=== PATIENT | female | born 1970 | race Caucasian/White ===

== ENCOUNTER 2018-05-06 17:57 | Inpatient (IN) | payer BC ==
[~2018-05-06] VITALS: Ht 167.6 cm; Wt 67.8 kg
[2018-05-06 18:03] VITALS: Ht 167.6 cm; Wt 67.8 kg
[2018-05-06 19:04] LABS: BASOPHIL % 0.6 % (0-2); PLATELET COUNT 158 x10^3mcL (130-400); RED CELL DISTRIBUTION WIDTH 12.6 % (11.5-14.5)
[2018-05-06 19:20] LABS: CARBON DIOXIDE 21.4 mmol/L (21-32); CREATININE SERUM 1.1 mg/dL (0.6-1.0); POTASSIUM SERUM 3.2 mmol/L (3.5-5.1)
[2018-05-06 19:25] LABS: ALBUMIN 2.9 g/dL (3.4-5.0); BILIRUBIN TOTAL 0.22 mg/dL (0.20-1.00); TOTAL PROTEIN, SERUM 7.2 g/dL (6.4-8.2)
[2018-05-06 19:50] LABS: T3 TOTAL 0.85 ng/mL
[2018-05-06 20:33] LABS: CHOLESTEROL/HDL RATIO 2.7; MAGNESIUM 1.7 mg/dL (1.8-2.4); PHOSPHOROUS 2.6 mg/dL (2.5-4.9)
[2018-05-06 20:40] VITALS: BP 108/67
[2018-05-06 20:43] LABS: FREE T4 0.96 ng/dL (0.76-1.46); FREE THYROXINE INDEX 2.6 ug/dL (1.4-4.5); T4(THYROXINE) 7.4 ug/dL (4.7-13.3)
[2018-05-06 23:20] VITALS: BP 129/48
[2018-05-06 23:46] LABS: BASOPHIL % 0.2 % (0-2); PLATELET COUNT 135 x10^3mcL (130-400)
[2018-05-07 00:08] LABS: BILIRUBIN DIRECT 0.18 mg/dL (0.0-0.2); BILIRUBIN TOTAL 0.4 mg/dL (0.20-1.00); TOTAL PROTEIN, SERUM 6.4 g/dL (6.4-8.2)
[2018-05-07 00:10] LABS: ALBUMIN 2.7 g/dL (3.4-5.0)
[2018-05-07 00:48] LABS: microscopic required? NO
[2018-05-07 01:03] LABS: UA SPECIFIC GRAVITY <=1.005 (1.005-1.035); urine erythrocyte NEGATIVE (NEGATIVE)
[2018-05-07 01:21] LABS: AMPHETAMINE QUAL UR NONE DETECTED (See below)
[2018-05-07 03:19] VITALS: BP 98/55
[2018-05-07 05:05] LABS: BASOPHIL % 0.4 % (0-2); PLATELET COUNT 144 x10^3mcL (130-400); RED CELL DISTRIBUTION WIDTH 13.2 % (11.5-14.5)
[2018-05-07 05:15] LABS: CALCIUM 8.2 mg/dL (8.5-10.1); CARBON DIOXIDE 23.2 mmol/L (21-32); CHLORIDE SERUM 111 mmol/L (98-107); CREATININE SERUM 0.9 mg/dL (0.6-1.0); GFR1 > 60 mL/min; GLUCOSE SERUM 116 mg/dL (74-106); MAGNESIUM 1.8 mg/dL (1.8-2.4); PHOSPHOROUS 4.1 mg/dL (2.5-4.9); POTASSIUM SERUM 4.2 mmol/L (3.5-5.1); SODIUM SERUM 143 mmol/L (136-145)
[2018-05-07 05:16] LABS: ALBUMIN 2.5 g/dL (3.4-5.0); BILIRUBIN DIRECT 0.09 mg/dL (0.0-0.2); BILIRUBIN TOTAL 0.31 mg/dL (0.20-1.00); TOTAL PROTEIN, SERUM 6.2 g/dL (6.4-8.2)
[2018-05-07 07:40] VITALS: BP 91/57
[2018-05-07] MEDS ORDERED: ZOF4 PO (11:40)
[2018-05-07 12:33] VITALS: BP 93/63
== END 2018-05-07 13:24 | disposition home or self-care (01) | DRG 918 ==
LOC: ED 17:57 → IC 19:14
PROVIDERS: Emergency Medicine; Internal Medicine
DX: T63.011A Toxic effect of rattlesnake venom, accidental (unintentional), initial encounter (principal); E44.0 Moderate protein-calorie malnutrition; R74.0 Nonspecific elevation of levels of transaminase and lactic acid dehydrogenase [LDH]; E78.5 Hyperlipidemia, unspecified; Y92.89 Other specified places as the place of occurrence of the external cause; Z68.26 Body mass index [BMI] 26.0-26.9, adult
CPT/HCPCS: 83880; 84439; 85378; J2060; J2270; J2405; J7030; J7050; Q0092

== ENCOUNTER 2020-05-27 08:40 | Inpatient (IN) | payer BC ==
[~2020-05-27] VITALS: Ht 154.9 cm; Wt 71.0 kg
[~2020-05-27 08:40] MED LIST: ZOF4 PO
[2020-05-27 08:41] VITALS: Ht 154.9 cm; Wt 71.0 kg
[2020-05-27 09:18] LABS: BASOPHIL % 0.4 % (0-2); PLATELET COUNT 150 x10^3mcL (130-400); RED CELL DISTRIBUTION WIDTH 12.9 % (11.5-14.5)
[2020-05-27 09:25] LABS: CALCIUM 8.7 mg/dL (8.5-10.1); CARBON DIOXIDE 18.3 mmol/L (21-32); CHLORIDE SERUM 109 mmol/L (98-107); CREATININE SERUM 0.9 mg/dL (0.6-1.0); GFR1 > 60 mL/min; GLUCOSE SERUM 150 mg/dL (74-106); POTASSIUM SERUM 3.7 mmol/L (3.5-5.1); SODIUM SERUM 142 mmol/L (136-145)
[2020-05-27 09:29] LABS: ALKALINE PHOSPHATASE 87 U/L (46-116); ALT/SGPT 29 U/L (14-59); AST/SGOT 26 U/L (15-37); BILIRUBIN TOTAL 0.3 mg/dL (0.20-1.00); TOTAL PROTEIN, SERUM 6.9 g/dL (6.4-8.2)
[2020-05-27 15:29] VITALS: BP 129/77
[2020-05-27 16:53] LABS: MAGNESIUM 1.9 mg/dL (1.8-2.4)
[2020-05-27 17:04] LABS: PHOSPHOROUS 0.7 mg/dL (2.5-4.9)
[2020-05-27 19:59] VITALS: BP 100/63
[2020-05-28 05:26] VITALS: BP 98/57
[2020-05-28 06:20] LABS: BASOPHIL % 0.3 % (0-2); PLATELET COUNT 143 x10^3mcL (130-400); RED CELL DISTRIBUTION WIDTH 12.9 % (11.5-14.5)
[2020-05-28 06:25] LABS: microscopic required? NO
[2020-05-28 06:47] LABS: CALCIUM 8.6 mg/dL (8.5-10.1); CARBON DIOXIDE 25.1 mmol/L (21-32); CHLORIDE SERUM 111 mmol/L (98-107); GFR1 > 60 mL/min; GLUCOSE SERUM 127 mg/dL (74-106); POTASSIUM SERUM 3.6 mmol/L (3.5-5.1); SODIUM SERUM 140 mmol/L (136-145)
[2020-05-28 07:43] LABS: UA SPECIFIC GRAVITY 1.025 (1.005-1.035); urine erythrocyte NEGATIVE (NEGATIVE)
[2020-05-28 08:00] LABS: AMPHETAMINE QUAL UR NONE DETECTED (See below)
[2020-05-28 08:16] VITALS: BP 106/65
[2020-05-28 12:49] VITALS: BP 110/68
[2020-05-28 16:39] VITALS: BP 102/62
[2020-05-28 21:43] VITALS: BP 101/63
[2020-05-29 05:41] VITALS: BP 103/67
[2020-05-29 06:49] LABS: BASOPHIL % 0.5 % (0-2); RED CELL DISTRIBUTION WIDTH 12.9 % (11.5-14.5)
[2020-05-29 06:59] LABS: PLATELET COUNT 122 x10^3mcL (130-400)
[2020-05-29 07:04] LABS: CALCIUM 8.5 mg/dL (8.5-10.1); CHLORIDE SERUM 112 mmol/L (98-107); CREATININE SERUM 0.8 mg/dL (0.6-1.0); GFR1 > 60 mL/min; GLUCOSE SERUM 85 mg/dL (74-106); MAGNESIUM 1.9 mg/dL (1.8-2.4); PHOSPHOROUS 3.5 mg/dL (2.5-4.9); POTASSIUM SERUM 3.4 mmol/L (3.5-5.1); SODIUM SERUM 142 mmol/L (136-145)
[2020-05-29 09:26] VITALS: BP 109/73
[2020-05-29 13:11] VITALS: BP 115/81
[2020-05-29 16:59] VITALS: BP 96/60
[2020-05-29 21:22] VITALS: BP 95/60
[2020-05-30 05:18] VITALS: BP 97/55
[2020-05-30 06:30] LABS: BASOPHIL % 0.3 % (0-2); PLATELET COUNT 141 x10^3mcL (130-400); RED CELL DISTRIBUTION WIDTH 12.6 % (11.5-14.5)
[2020-05-30 07:03] LABS: CALCIUM 8.8 mg/dL (8.5-10.1); CARBON DIOXIDE 27.5 mmol/L (21-32); CHLORIDE SERUM 105 mmol/L (98-107); CREATININE SERUM 0.8 mg/dL (0.6-1.0); GFR1 > 60 mL/min; GLUCOSE SERUM 94 mg/dL (74-106); MAGNESIUM 1.9 mg/dL (1.8-2.4); PHOSPHOROUS 4.1 mg/dL (2.5-4.9); POTASSIUM SERUM 3.3 mmol/L (3.5-5.1); SODIUM SERUM 142 mmol/L (136-145)
[2020-05-30 08:33] VITALS: BP 108/76
[2020-05-30 12:00] VITALS: BP 116/76
[2020-05-30 16:30] VITALS: BP 110/72
[2020-05-30 19:51] VITALS: BP 114/67
[2020-05-30 21:30] VITALS: BP 105/70
[2020-05-31 05:19] VITALS: BP 98/63
[2020-05-31] MEDS ORDERED: MECLIZINE HYDRO25 M1 PO (05:50)
[2020-05-31 07:18] LABS: BASOPHIL % 0.4 % (0-2); PLATELET COUNT 141 x10^3mcL (130-400); RED CELL DISTRIBUTION WIDTH 12.3 % (11.5-14.5)
[2020-05-31 07:34] LABS: CALCIUM 9.1 mg/dL (8.5-10.1); CARBON DIOXIDE 28.6 mmol/L (21-32); CHLORIDE SERUM 105 mmol/L (98-107); GFR1 > 60 mL/min; GLUCOSE SERUM 96 mg/dL (74-106); MAGNESIUM 1.8 mg/dL (1.8-2.4); PHOSPHOROUS 3.9 mg/dL (2.5-4.9); SODIUM SERUM 141 mmol/L (136-145)
[2020-05-31 08:36] VITALS: BP 125/76
[2020-05-31 09:28] VITALS: BP 125/76
== END 2020-05-31 10:47 | disposition home or self-care (01) | DRG 72 ==
LOC: ED 08:40 → DU 13:36
PROVIDERS: Emergency Medicine; ADMIT Family Medicine; ATTEND Family Medicine
DX: G96.89 Other specified disorders of central nervous system (principal); E78.5 Hyperlipidemia, unspecified; Z90.49 Acquired absence of other specified parts of digestive tract; Z98.42 Cataract extraction status, left eye; Z98.41 Cataract extraction status, right eye; K21.9 Gastro-esophageal reflux disease without esophagitis; E83.39 Other disorders of phosphorus metabolism; E87.6 Hypokalemia; Z20.828 Contact with and (suspected) exposure to other viral communicable diseases
CPT/HCPCS: 83880; 97110-GP; 97116-GP; 97530-GP; C9113; G0378; J1644; J1940; J2060; J2405; J2765; J3490; J7030; J7042; J8597; Q0092; Q9967